=== PATIENT | male | born 1970 | race African-American/Black ===

== ENCOUNTER 2017-01-16 10:33 | Emergency (ER) | payer OTHER ==
[2017-01-16] MEDS ORDERED: IBUPROFEN 800 MG TABLET PO ONE (11:22)
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
[2017-01-16 12:02] VITALS: BP 141/80
== END 2017-01-16 11:58 | disposition home or self-care (01) ==
LOC: ER 10:33
DX: S13.4XXA Sprain of ligaments of cervical spine, initial encounter (principal); V49.40XA Driver injured in collision with unspecified motor vehicles in traffic accident, initial encounter; M54.2 Cervicalgia; M54.5 Low back pain; G89.29 Other chronic pain; I10 Essential (primary) hypertension; F17.200 Nicotine dependence, unspecified, uncomplicated
CPT/HCPCS: 99283

== ENCOUNTER 2020-05-27 19:24 | Emergency (ER) | payer OTHER ==
[2020-05-27 19:46] VITALS: BP 152/101
--- NOTE | 2020-05-27 19:49 | ER Document Report ---
ED General - General Chief Complaint: Other Stated Complaint: COVID EXPOSURE Time Seen by Provider: 05/27/20 19:44 TRAVEL OUTSIDE OF THE [place] IN LAST 30 DAYS: No - HPI Patient complains to provider of: Covid exposure Notes: Patient presents with COVID exposure. Patient's 2 roommates cover positive. Patient denies all symptoms - Related Data Allergies/Adverse Reactions: No Known Allergies Allergy (Verified 01/16/17 10:51) Past Medical History - Social History Smoking Status: Unknown if Ever Smoked Family History: Reviewed & Not Pertinent - Past Medical History Cardiac Medical History: Reports: Hx Hypertension Renal/ Medical History: Denies: Hx Peritoneal Dialysis Past Surgical History: Reports: Hx Genitourinary Surgery - UNDESCENDED TESTICLE, Hx Tonsillectomy - Immunizations Hx Diphtheria, Pertussis, Tetanus Vaccination: Yes Review of Systems - Review of Systems Notes: REVIEW OF SYSTEMS: CONSTITUTIONAL: -fevers, -chills EENT: -eye pain, -difficulty swallowing, -nasal congestion CARDIOVASCULAR: -chest pain, -syncope. RESPIRATORY: -cough, -SOB GASTROINTESTINAL: -abdominal pain, -nausea, -vomiting, -diarrhea GENITOURINARY: -dysuria, -hematuria MUSCULOSKELETAL: -back pain, -neck pain SKIN: -rash or skin lesions. HEMATOLOGIC: -easy bruising or bleeding. LYMPHATIC: -swollen, enlarged glands. NEUROLOGICAL: -altered mental status or loss of consciousness, -headache, - neurologic symptoms PSYCHIATRIC: -anxiety, -depression. ALL OTHER SYSTEMS REVIEWED AND NEGATIVE. Physical Exam - Vital signs Vitals: Temp Pulse Resp BP Pulse Ox 99.1 F 95 20 152/101 H 98 05/27/20 19:39 05/27/20 19:39 05/27/20 19:39 05/27/20 19:39 05/27/20 19:39 - Notes Notes: PHYSICAL EXAMINATION: GENERAL: Well-appearing, well-nourished and in no acute distress. HEAD: Atraumatic, normocephalic. EYES: Pupils equal round, sclera anicteric, conjunctiva are normal. ENT: Surgical mask in place. NECK: Normal range of motion, LUNGS: No respiratory Distress, normal chest rise NEUROLOGICAL: Cranial nerves grossly intact. Normal speech, PSYCH: Normal mood, normal affect. SKIN: Warm, Dry, Course - Re-evaluation Re-evalutation: 05/27/20 19:49 Asymptomatic patient presents with COVID exposure to his roommates. [facility] with swab obtained results pending at this time discharged home pending self quarantine - Vital Signs Vital signs: Temp Pulse Resp BP Pulse Ox 99.1 F 95 20 152/101 H 98 05/27/20 19:39 05/27/20 19:39 05/27/20 19:39 05/27/20 19:39 05/27/20 19:39 Discharge - Discharge Clinical Impression: Close exposure to COVID-19 virus Condition: Stable Disposition: HOME, SELF-CARE Instructions: COVID-19 Guidance for Persons Under Investigation
== END 2020-05-27 20:05 | disposition home or self-care (01) ==
LOC: ER 19:24
DX: Z20.828 Contact with and (suspected) exposure to other viral communicable diseases (principal); I10 Essential (primary) hypertension
CPT/HCPCS: 99283; 87635; C9803